=== PATIENT | male | born 1990 | race Caucasian/White ===

== ENCOUNTER 2019-11-02 21:34 | Emergency (ER) | payer MEDICAID ==
[~2019-11-02] VITALS: Ht 180.3 cm; Wt 59.0 kg
[2019-11-02 22:38] LABS: BILIRUBIN,URINE NEGATIVE (NEG); CLARITY,URINE CLEAR; COLOR,URINE YELLOW; NITRITE,URINE NEGATIVE (NEG); PROTEIN,URINE NEGATIVE (NEG-TRACE); UROBILINOGEN,URINE 0.2 mg/dL (0.2 mg/dL)
[2019-11-02 22:44] LABS: BACTERIA,URINE 0 /HPF (0-FEW); BARBITURATES NEG (NEG); BENZODIAZEPINES NEG (NEG); CANNABINOIDS NEG (NEG); COCAINE NEG (NEG); METHADONE NEG (NEG); OPIATES NEG (NEG); PHENCYCLIDINE NEG (NEG); RBC,URINE 0 /HPF (0-2); WBC,URINE 0 /HPF (0-4)
[2019-11-02 22:46] LABS: AMPHETAMINE/METHAMPHETAMINE POS (NEG)
[2019-11-02] MEDS ORDERED: CEPH-264 PO (23:29)
--- NOTE | 2019-11-02 23:32 | PHYS DOC ---
Past Medical History Past Medical History: HIV Past Surgical History: No Surgical History Smoking Status: Current Every Day Smoker Alcohol Use: None General Adult EDM: Chief Complaint: SKIN RASH/ABSCESS HPI: HPI: Patient is a 29 year old male who presents to the emergency department with complaints of a continued rash near his rectum that has been persistent over 2 weeks. He reports his primary care doctor started him on Bactrim and Biktarvy 2 weeks ago but his rash continues. He denies any bleeding, or drainage from the rash. He reports that at times the rash itches. He currently denies any pain. While in the emergency department the patient also expressed concerns about people following him and fear for his own safety. He denied any suicidal or homicidal ideations. Patient denies any illicit drug use. He denies any previous history of schizophrenia, depression, anxiety, or other psychiatric disorders. The patient reports that he has heard people say they want to kill him. Review of Systems: Review of Systems: Constitutional: Denies fever or chills. [] Eyes: Denies change in visual acuity. [] HENT: Denies nasal congestion or sore throat. [] Respiratory: Denies cough or shortness of breath. [] Cardiovascular: Denies chest pain or edema. [] GI: Denies abdominal pain, nausea, vomiting, or diarrhea. [] : Denies dysuria. [] Musculoskeletal: Denies back pain or joint pain. [] Integument: See HPI Neurologic: Denies headache, focal weakness or sensory changes. [] Lymphatic: Denies swollen glands. [] Psychiatric: Denies depression; see HPI Heart Score: Risk Factors: Risk Factors: DM, Current or recent (<one month) smoker, HTN, HLP, family history of CAD, obesity. Risk Scores: Score 0 - 3: 2.5% MACE over next 6 weeks - Discharge Home Score 4 - 6: 20.3% MACE over next 6 weeks - Admit for Clinical Observation Score 7 - 10: 72.7% MACE over next 6 weeks - Early Invasive Strategies Allergies: Allergies: Allergies Coded Allergies Type Severity Reaction Last Updated Verified No Known Drug Allergies 11/02/19 No Physical Exam: PE: Constitutional: Well developed, well nourished, no acute distress, non-toxic appearance. [] HENT: Normocephalic, atraumatic, bilateral external ears normal, oropharynx moist, nose normal. [] Eyes: PERRLA, EOMI, conjunctiva normal, no discharge. [] Neck: Normal range of motion, no stridor. [] Cardiovascular:Heart rate regular rhythm, no murmur [] Lungs & Thorax: Bilateral breath sounds clear to auscultation, my lungs [] Skin: Warm, dry; erythema noted between the buttocks with 2 honey crusted lesions noted to the left medial buttock without active drainage or bleeding consistent with bacterial infection of the skin Extremities: No tenderness, no cyanosis, no clubbing, ROM intact, no edema. [] Neurologic: Alert and oriented X 3, no focal deficits noted. [] Psychologic: Affect paranoid, judgement normal, mood anxious Current Patient Data: Labs: Laboratory Tests Test 11/02/19 21:48 Urine Collection Type Unknown Urine Color Yellow Urine Clarity Clear Urine pH 6.0 (<5.0-8.0) Urine Specific [employer] 1.010 (1.000-1.030) Urine Protein Negative mg/dL (NEG-TRACE) Urine Glucose (UA) Negative mg/dL (NEG) Urine Ketones (Stick) Negative mg/dL (NEG) Urine Blood Negative (NEG) Urine Nitrite Negative (NEG) Urine Bilirubin Negative (NEG) Urine Urobilinogen Dipstick 0.2 mg/dL (0.2 mg/dL) Urine Leukocyte Esterase Negative (NEG) Urine RBC 0 /HPF (0-2) Urine WBC 0 /HPF (0-4) Urine Bacteria 0 /HPF (0-FEW) Urine Mucus Slight /LPF Urine Opiates Screen Neg (NEG) Urine Methadone Screen Neg (NEG) Urine Barbiturates Neg (NEG) Urine Phencyclidine Screen Neg (NEG) Urine Amphetamine/Methamphetamine Pos (NEG) Urine Benzodiazepines Screen Neg (NEG) Urine Cocaine Screen Neg (NEG) Urine Cannabinoids Screen Neg (NEG) Urine Ethyl Alcohol Neg (NEG) Vital Signs: Vital Signs Date Time Temp Pulse Resp B/P (MAP) Pulse Ox O2 Delivery O2 Flow Rate FiO2 11/02/19 21:48 98.3 112 16 139/83 (101) 98 Room Air 98.3 EKG: EKG: [] Radiology/Procedures: Radiology/Procedures: [] Course & Med Decision Making: Course & Med Decision Making Pertinent Labs and Imaging studies reviewed. (See chart for details) UA unremarkable, UDS positive for amphetamines. Pt's VSS. Pt denies any fever, body aches, fatigue, rash to hands, or weakness. Alert and oriented x4 He denies any visual or auditory hallucinations. Pt reports that his last T- count was 200. [id number]-Winifred with the PAT assessment team at bedside evaluating patient. She is aware that patient was positive for methamphetamine use.+ 2329- physical exam findings likely consistent with strept infection to gluteal cleft. Prescription written for Winifred dudley PAT loss prevention lead provided pt with RSI resources. Pt declines any inpatient treatment at this time. Pt encouraged to follow up with his PCP in 2 days as scheduled. Return to the ER if sx worsen or fever develops. Pt verbalizes understanding of d/c instructions, medications, treatment, follow- up, and return to ER precautions and is in agreement with POC. [] Celestinoon Disclaimer: Dragon Disclaimer: This electronic medical record was generated, in whole or in part, using a voice recognition dictation system. Departure Departure Impression: Primary Impression: Cellulitis, gluteal, left Additional Impressions: Drug-induced paranoia or hallucinations Amphetamine abuse Disposition: 01 HOME, SELF-CARE Condition: STABLE Referrals: RUDOLPH MCKEON MD (PCP) Patient Instructions: Amphetamine Abuse-Brief, Cellulitis, [id number] Additional Instructions: Fill the prescription and take it as directed in addition to the Bactrim you are currently taking. Leave your skin open to air at night. Follow up with your doctor in 2 days as scheduled. Use the resources for RSI that were given to you in the ER. Return to the ER if you develop a fever or your symptoms worsen. Scripts Cephalexin (KEFLEX) 500 Mg Capsule 500 MG PO QID for 7 Days, #28 CAP 0 Refills Prov: JIMBO AMEZCUA EPIC SPECIALIST 11/02/19 Justicifation of Admission Dx: Justifications for Admission: Justification of Admission Dx: N/A JIMBO AMEZCUA EPIC SPECIALIST Nov 02, 2019 23:32
[2019-11-03 00:24] VITALS: BP 133/85
== END 2019-11-03 00:25 | disposition home or self-care (01) ==
LOC: ER 21:34
DX: L03.317 Cellulitis of buttock (principal); F15.10 Other stimulant abuse, uncomplicated; F22 Delusional disorders; F17.200 Nicotine dependence, unspecified, uncomplicated
CPT/HCPCS: 80307; 81001; 99283; 99284